=== PATIENT | male | born 1950 | race American Indian/Alaskan Native ===

== ENCOUNTER → 2017-02-28 | Outpatient (CLI) | payer BC, OTHER ==
[2017-02-28 13:40] LABS: BLOOD UREA NITROGEN 18 mg/dl (7-18); BUN/CREATININE RATIO 13.7 (10-20); CALCIUM 8.5 mg/dl (8.5-10.1); CARBON DIOXIDE 28 mmol/L (21-32); CHLORIDE 106 mmol/L (98-107); GLUCOSE 81 mg/dl (70-99); POTASSIUM 3.9 mmol/L (3.5-5.1); SODIUM 143 mmol/L (136-145)
[2017-02-28 13:50] LABS: THYROID STIMULATING HORMONE 0.008 uIu/ml (0.300-4.500)
== END | disposition home or self-care (01) ==
LOC: C.LABMFLN 07:53
PROVIDERS: ATTEND Family Medicine
DX: E03.8 Other specified hypothyroidism (principal); N18.3 Chronic kidney disease, stage 3 (moderate)